=== PATIENT | male | born 1995 | race Two or more races ===

== ENCOUNTER 2023-04-20 08:31 | Emergency (ER) | payer SELFPAY ==
[~2023-04-20] VITALS: Ht 165.1 cm; Wt 74.8 kg
[2023-04-20 08:54] VITALS: BP_SYST 145; BP_DIAS 11; BP_DIAS 111
--- NOTE | 2023-04-20 09:19 | DIREP ---
PROCEDURE:XRAY SHOULDER MIN 2 VWS-LT COMPARISON:None. INDICATIONS:left shoulder pain FINDINGS: BONES:Normal. JOINTS:Normal glenohumeral joint. Normal acromioclavicular joint. No evidence for dislocation. SOFT TISSUES:Normal. OTHER:Normal. CONCLUSION:No acute bony abnormality. Dictated by: Keagan eBrrios M.D. on 04/20/2023 at 09:14 AM
--- NOTE | 2023-04-20 09:23 | ER.PDOC ---
General Chief Complaint: Extremities Stated Complaint: L SHOULDER PAIN Time seen by MD: 09:22 Source: patient Exam Limitations: no limitations History of Present Illness Initial Comments Left shoulder pain since he got up from bed this morning. No injury. Occurred: this morning Where: home Severity: moderate Allergies: Coded Allergies: No Known Drug Allergies (Verified Allergy, Unknown, 04/20/23) Past Medical History Medical History: no pertinent history Family History Significant Family History: no pertinent family hx Social History Smoking: non-smoker Alcohol Use: occassionally Drug Use: marijuana Review of Systems Constitutional: no symptoms reported EENTM: no symptoms reported Respiratory: no symptoms reported Cardiovascular: no symptoms reported Gastrointestinal: no symptoms reported Musculoskeletal: see HPI All Other Systems: Reviewed and Negative Physical Exam General Appearance: Alert, No Apparent Distress Shoulder: nml inspection, full ROM, no dislocation Upper Extremities: tenderness (Left shoulder without swelling or erythema) Neuro: sensation nml, motor nml Vascular: no vascular compromise Skin: warm/dry Head/ENT: nml inspection, pharynx nml Neck/Back: non-tender, nml inspection, painless ROM Respiratory: chest non-tender, breath sounds nml CVS: reg rate & rhythm, heart sounds nml Abdomen: non-tender, no organomegaly Results/Orders Results/Orders Orders - INDY ROBERTS MD Xr Shoulder Lt 2v (04/20/23 09:00) Vital Signs Date Time Temp Pulse Resp B/P (MAP) Pulse Ox O2 Delivery O2 Flow Rate FiO2 04/20/23 08:54 98.0 70 18 100 04/20/23 08:54 98.0 70 18 145/111 (122) 100 Room Air* 0 21 04/20/23 08:54 98.0 70 18 Progress Progress X-rays of the left shoulder showed no acute bony abnormality Patient refused pain medicine. ER DEPART Departure Time of Disposition: :23 Disposition: 01 HOME / SELF CARE / HOMELESS Impression: Primary Impression: Shoulder pain Additional Impression: Muscle strain Condition: Stable Referrals: PCP,UNKNOWN (PCP) PRIMARY CARE PROVIDER Additional Instructions: Ibuprofen Follow-up with your PCP in 1 week Return to ED if worsening or concerns Duration or Time Spent with Pa: 10 min Problem Qualifiers Primary Impression: Shoulder pain Chronicity: acute Laterality: left Qualified Codes: M25.512 - Pain in left shoulder INDY ROBERTS MD Apr 20, 2023 09:23
== END 2023-04-20 09:37 | disposition home or self-care (01) ==
LOC: ER 08:31
DX: S46.912A Strain of unspecified muscle, fascia and tendon at shoulder and upper arm level, left arm, initial encounter (principal); F12.90 Cannabis use, unspecified, uncomplicated; X58.XXXA Exposure to other specified factors, initial encounter; Y93.89 Activity, other specified; Y92.89 Other specified places as the place of occurrence of the external cause; Y99.8 Other external cause status
CPT/HCPCS: 99283; 73030-LT